=== PATIENT | female | born 1945 | race Caucasian/White ===

== ENCOUNTER 2018-12-18 04:50 | Emergency (ER) | payer MEDICARE, BC ==
[2018-12-18] MEDS ORDERED: Sodium Chloride 0.9% 10 ML Syringe FLUSH PRN (05:08)
[2018-12-18] MEDS ORDERED: Ondansetron 4 MG/2 ML SDV IVPUSH ONE (05:08)
[2018-12-18] MEDS ORDERED: Enalaprilat 1.25 MG/ML SDV IVPUSH ONE (05:10)
[2018-12-18] MEDS ORDERED: Lactated Ringers 1,000 ML IV SCH (05:15)
--- NOTE | 2018-12-18 05:16 | EDM.PDOC ---
<Deven Roman - Last Filed: 12/18/18 07:02> ED HPI GENERAL MEDICAL PROBLEM - General Chief Complaint: Abdominal Pain Stated Complaint: vomiting, abdominal pain Time Seen by Provider: 12/18/18 05:06 Source of Information: Reports: Patient History Limitations: Reports: No Limitations - History of Present Illness INITIAL COMMENTS - FREE TEXT/NARRATIVE: Patient presents with complaints of left upper quadrant pain, nausea, vomiting that started around 0200 this AM. She does also state the pain started yesterday, noticed blood in her stools yesterday. Relays to me that she has been having a hard time with bowel movements as well. No recent history of travel outside the country, no recent ill contact that she is aware. Did see primary care provider Dr. Martinez yesterday. States her gall bladder and appendix have been removed, as has her uterus. Ovaries intact. Denies history of crohn's, diverticulitis, or other IBS/IBD type disease. Denies chest pain, sob. Denies prior heart attack or stroke. Does have history of hemorrhoids, urinary stress incontinence. Onset: Gradual Onset Date: 12/17/18 Duration: Getting Worse, Intermittent Location: Reports: Abdomen Quality: Reports: Ache Severity: Moderate Improves with: Reports: Medication Worsens with: Reports: Movement Associated Symptoms: Reports: Nausea/Vomiting Left Abdomen Pain Score (Numeric/FACES): 8 - Related Data Allergies Allergy/AdvReac Type Severity Reaction Status Date / Time adhesive Allergy Rash Verified 12/18/18 04:51 clonazepam Allergy Hives Verified 12/18/18 04:51 escitalopram Allergy Hives Verified 12/18/18 04:51 codeine AdvReac Nausea and Verified 12/18/18 04:51 Vomiting ibuprofen [From Motrin] AdvReac Nausea and Verified 12/18/18 04:51 Vomiting cigarette smoke Allergy Cannot Uncoded 12/18/18 04:51 Remember glue Allergy Airway Uncoded 12/18/18 04:51 Tightness yellow javket venom Allergy Swelling Uncoded 12/18/18 04:51 Home Meds: Home Meds Albuterol/Ipratropium [Combivent Respimat] 1 puff IH QID PRN 12/09/13 [History] Aspirin [Halfprin] 81 mg PO DAILY 12/09/13 [History] Fluticasone Propionate [Flovent HFA 44 MCG] 2 puff INH BID 12/09/13 [History] Krill Oil 500 mg PO DAILY 12/09/13 [History] Niacin 500 mg PO BEDTIME 12/09/13 [History] Ascorbic Acid 1,000 mg PO DAILY 12/18/18 [History] Bimatoprost [LUMIGAN 0.01% Ophth Soln] 2.5 ml EYEBOTH QPM 12/18/18 [History] Calcium Carbonate/Vitamin D3 [Calcium 600 + Vit D 200] 1 each PO BID 12/18/18 [ History] Lactobacillus Combination No.4 [Probiotic] 1 each PO DAILY 12/18/18 [History] Lisinopril/Hydrochlorothiazide [Zestoretic 10-12.5 mg Tablet] 1 each PO DAILY [History] Turmeric Root Extract [Turmeric] 500 mg PO BEDTIME 12/18/18 [History] diphenhydrAMINE [Benadryl] 50 mg PO ASDIRECTED PRN 12/18/18 [History] traZODone HCl [Trazodone HCl] 1 - 2 tab PO BEDTIME 12/18/18 [History] Past Medical History Cardiovascular History: Reports: Hypertension Respiratory History: Reports: Asthma Musculoskeletal History: Reports: Osteoarthritis Social & Family History - Tobacco Use Smoking Status *Q: Never Smoker ED ROS GENERAL - Review of Systems Review Of Systems: See Below Constitutional: Reports: No Symptoms HEENT: Reports: No Symptoms Respiratory: Reports: No Symptoms Cardiovascular: Reports: No Symptoms Endocrine: Reports: No Symptoms GI/Abdominal: Reports: Abdominal Pain, Bloody Stool, Nausea, Vomiting : Reports: Urinary Retention Musculoskeletal: Reports: No Symptoms Skin: Reports: No Symptoms Neurological: Reports: No Symptoms Psychiatric: Reports: No Symptoms Hematologic/Lymphatic: Reports: No Symptoms Immunologic: Reports: No Symptoms ED EXAM, GI/ABD - Physical Exam Exam: See Below Exam Limited By: No Limitations General Appearance: Alert, WD/WN, Active Emesis Eyes: Bilateral: Normal Appearance, EOMI Ears: Normal TMs Nose: Normal Inspection, Normal Mucosa, No Blood Throat/Mouth: Normal Inspection, Normal Lips, Normal Teeth, Normal Gums, Normal Oropharynx, Normal Voice, No Airway Compromise Head: Atraumatic, Normocephalic Neck: Normal Inspection, Supple, Non-Tender, Full Range of Motion Respiratory/Chest: No Respiratory Distress, Lungs Clear, Normal Breath Sounds, No Accessory Muscle Use, Chest Non-Tender Cardiovascular: Normal Peripheral Pulses, Regular Rate, Rhythm, No Edema, No Gallop, No JVD, No Murmur, No Rub GI/Abdominal Exam: No Abnormal Bruit, Distended, Rigid, Tender Back Exam: Normal Inspection, Full Range of Motion, NT Extremities: Normal Inspection, Normal Range of Motion, Non-Tender, Normal Capillary Refill, No Pedal Edema Neurological: Alert, Oriented, CN II-XII Intact, Normal Cognition, Normal Gait, Normal Reflexes, No Motor/Sensory Deficits Psychiatric: Normal Affect, Normal Mood Skin Exam: Warm, Dry, Intact, Normal Color, No Rash Lymphatic: No Adenopathy Course - Vital Signs Last Recorded V/S: Last Vital Signs Temp 35.9 C 12/18/18 06:04 Pulse 66 12/18/18 06:04 Resp 14 12/18/18 06:04 BP 154/60 H 12/18/18 06:04 Pulse Ox 95 12/18/18 06:04 - Orders/Labs/Meds Orders: Active Orders 24 hr Category Date Time Status Abdomen Pelvis w Cont [CT] Stat Exams 12/18/18 05:15 Taken URINALYSIS W/MICROSCOPIC [UA W/MICROSCOPIC] [URIN] Stat Lab 12/18/18 05:15 Ordered Lactated Ringers [Ringers, Lactated] 1,000 ml Med 12/18/18 05:15 Active IV ASDIRECTED Sodium Chloride 0.9% [Saline Flush] Med 12/18/18 05:08 Active 10 ml FLUSH ASDIRECTED PRN Saline Lock Insert [OM.PC] Routine Oth 12/18/18 05:08 Ordered Medication Orders Lactated Ringer's (Ringers, Lactated) 1,000 mls @ 999 mls/hr IV ASDIRECTED KAITY Last Admin: 12/18/18 05:13 Dose: 999 mls/hr Sodium Chloride (Saline Flush) 10 ml FLUSH ASDIRECTED PRN PRN Reason: Keep Vein Open Labs: Laboratory Tests 12/18/18 12/18/18 12/18/18 Range/Units 05:25 05:25 07:15 WBC 9.7 (4.0-10.0) x10^3/uL RBC 4.90 (4.00-5.50) x10^6/uL Hgb 15.0 (12.0-16.0) g/dL Hct 43.9 (33.0-47.0) % MCV 89.6 (78.0-93.0) fL MCH 30.6 (26.0-32.0) pg MCHC 34.2 (32.0-36.0) g/dL RDW Coeff of Meng 12.7 (10.0-15.0) % Plt Count 193 (130-400) x10^3/uL Neut % (Auto) 69.1 (50.0-80.0) % Lymph % (Auto) 24.9 L (25.0-50.0) % [place] % (Auto) 4.7 (2.0-11.0) % Eos % (Auto) 1.0 (0.0-4.0) % Baso % (Auto) 0.3 (0.2-1.2) % Sodium 141 (136-145) mmol/L Potassium 3.8 (3.5-5.1) mmol/L Chloride 106 (98-107) mmol/L Carbon Dioxide 26 (21-32) mmol/L Anion Gap 12.8 (10-20) mmol/L BUN 18 (7-18) mg/dL Creatinine 1.0 (0.55-1.02) mg/dL Est Cr Clr Drug Dosing TNP Estimated GFR (MDRD) 54 Glucose 205 H (74-106) mg/dL Calcium 10.6 H (8.5-10.1) mg/dL Corrected Calcium 10.68 H (8.5-10.1) mg/dL Magnesium 1.8 (1.8-2.4) mg/dL Total Bilirubin 1.4 H (0.2-1.0) mg/dL AST 16 (15-37) U/L ALT 49 (14-59) U/L Alkaline Phosphatase 84 (46-116) U/L Troponin I 0.022 (<=0.056) ng/mL NT-Pro-B Natriuret Pep 58 (<=125) pg/mL Total Protein 7.6 (6.4-8.2) g/dL Albumin 3.9 (3.4-5.0) g/dL Globulin 3.7 Albumin/Globulin Ratio 1.05 Amylase 46 (25-115) U/L Lipase 140 (73-393) U/L TSH, Ultra Sensitive 0.610 (0.358-3.74) uIU/mL Urine Color Light yellow (YELLOW) Urine Appearance Clear (CLEAR) Urine pH 7.0 (5.0-8.0) Ur Specific Ivel 1.015 Urine Protein Trace H (NEGATIVE) mg/dL Urine Glucose (UA) Negative (NEGATIVE) mg/dL Urine Ketones Negative (NEGATIVE) mg/dL Urine Occult Blood Moderate H (NEGATIVE) Urine Nitrite Negative (NEGATIVE) Urine Bilirubin Negative (NEGATIVE) Urine Urobilinogen 0.2 (0.2) EU/dL Ur Leukocyte Esterase Negative (NEGATIVE) Meds: Medications Generic Name Dose Route Start Last Admin Trade Name Freq PRN Reason Stop Dose Admin Lactated Ringer's 1,000 mls @ 999 mls/hr 12/18/18 05:15 12/18/18 05:13 Ringers, Lactated IV 999 mls/hr ASDIRECTED KAITY Administration Sodium Chloride 10 ml 12/18/18 05:08 Saline Flush FLUSH ASDIRECTED PRN Keep Vein Open Discontinued Medications Generic Name Dose Route Start Last Admin Trade Name Freq PRN Reason Stop Dose Admin Hydrocodone Bitart/Acetaminophen 1 packet 12/18/18 07:12 Take Home: Acetaminophen/Hydrocodone 325-10mg PO 12/18/18 07:13 ONETIME ONE Enalaprilat 1.25 mg 12/18/18 05:10 12/18/18 05:35 Vasotec Iv IVPUSH 12/18/18 05:11 1.25 mg ONETIME ONE Administration Iopamidol 100 ml 12/18/18 06:27 12/18/18 06:37 Isovue-300 (61%) IVPUSH 12/18/18 06:28 100 ml ONETIME ONE Administration Morphine Sulfate 2 mg 12/18/18 05:30 12/18/18 05:39 Morphine IVPUSH 12/18/18 05:31 2 mg ONETIME ONE Administration Ondansetron HCl 4 mg 12/18/18 05:08 12/18/18 05:12 Zofran IVPUSH 12/18/18 05:09 4 mg ONETIME ONE Administration Pantoprazole Sodium 40 mg 12/18/18 05:22 12/18/18 05:36 Protonix Iv IVPUSH 12/18/18 05:23 40 mg ONETIME ONE Administration Tamsulosin HCl 0.4 mg 12/18/18 07:12 Flomax PO 12/18/18 07:13 ONETIME ONE Departure - Departure Disposition: Home, Self-Care 01 Clinical Impression: Hydronephrosis concurrent with and due to calculi of kidney and ureter, Ileus - Discharge Information Instructions: Kidney Stones, [id number] Referrals: PCP,Unobtain [Primary Care Provider] - Forms: ED Department Discharge Additional Instructions: Blossom 10/325mg 1 every 4-6 hours as needed for pain Flomax 0.4mg 1 tab daily Continue to take until your pain has been gone for a week Recheck in clinic in 7-10 days You have a good chance of passing the stone on your own, but if you have pain that is not helped by the Blossom, return to ER. Strain urine. If you collect any stones, bring them in to clinic for analysis. <Zack Hernandez - Last Filed: 12/18/18 07:29> Course - Radiology Interpretation Free Text/Narrative:: 5mm stone at L UPJ with mild hydronephrosis with numerous bilateral non- obstructing renal calculi bilaterally. Mild ileus bowel gas pattern without obstruction. Departure - Departure Time of Disposition: 07:25 - Assessment/Plan Plan: Blossom 10/325mg 1 every 4-6 hours as needed for pain Flomax 0.4mg 1 tab daily Continue to take until your pain has been gone for a week Recheck in clinic in 7-10 days You have a good chance of passing the stone on your own, but if you have pain that is not helped by the Blossom, return to ER. Strain urine. If you collect any stones, bring them in to clinic for analysis. Pt. was urged to return if she is continuing to have severe discomfort, continued vomiting, or other symptoms. She states that she "needs to get home" due to some scheduled home repairs, but will return if needed. All questions were answered.
[2018-12-18] MEDS ORDERED: Pantoprazole 40 MG Vial IVPUSH ONE (05:22)
[2018-12-18] MEDS ORDERED: Morphine 2 MG/ML Syringe IVPUSH ONE (05:30)
[2018-12-18 06:01] LABS: ANION GAP 12.8 mmol/L (10-20); CHLORIDE,CL 106 mmol/L (98-107); SODIUM,NA 141 mmol/L (136-145)
[2018-12-18 06:05] VITALS: BP 154/60; PULSE 66
[2018-12-18] MEDS ORDERED: Iopamidol 612 MG/ML 100 ML Bottle IVPUSH ONE (06:27)
[2018-12-18] MEDS ORDERED: Take Home: Acetaminophen/HYDROcodone 325-10 MG, 5 Tab Pack PO ONE (07:12)
[2018-12-18] MEDS ORDERED: Tamsulosin 0.4 MG Cap.ER PO ONE (07:12)
--- NOTE | 2018-12-18 08:14 | CT ---
[id number] CT/CT Abdomen Pelvis W IV EXAM: CT Abdomen Pelvis W IV CLINICAL DATA: NAUSEA/VOMITING. COMPARISON STUDY: None. FINDINGS: Bibasal subsegmental atelectasis and/or scarring. Along the superior margin of the examination and the right lower lobe there is more focal area of parenchymal opacification abutting the mediastinum. Density of the liver is diffusely decreased. Finding is nonspecific but can be seen with steatosis. Correlate with LFTs. Subcentimeter hypodensities, including a fat-containing subcapsular mass in the high right hepatic lobe near the dome of the diaphragm measuring up to 16 mm in diameter. This was seen on MRI from 2017 and is unchanged. Gallbladder has been resected. Borderline splenomegaly. AP diameter is approximately 13 cm. Pancreas and adrenal glands are unremarkable. Kidneys demonstrate numerous nonobstructing calculi measuring up to 7 mm in diameter. 4-5 mm proximal right ureteral calculus at the UPJ with mild hydronephrosis. Slightly delayed left nephrogram as well. Bowel containing ventral abdominal wall hernia superior to the umbilicus. Few scattered colonic diverticula. No evidence of acute diverticulitis. No small bowel obstruction or inflammation. There is stool within the terminal ileum however, correlate for constipation. This may also account for mildly distended loops of small bowel leading up to the terminal ileum containing air-fluid levels. Small sliding-type hiatus hernia. Advanced L4-5 facet joint arthropathy results in grade 1 anterolisthesis. Diffuse bone demineralization. No prevertebral body hemangioma. Scattered changes of mild to moderate degenerative disease. Moderate bilateral femoroacetabular osteoarthritis. IMPRESSION: Correlate for constipation induced small bowel distention, as there is stool in the terminal ileum with upstream fluid-filled loops of small bowel and moderate colonic stool burden. 5 mm proximal left ureteral calculus at the UPJ with mild upstream hydronephrosis and a delayed nephrogram. Other findings are described above. Giancarlo Gold MD 12/18/18 0813 Thank you for allowing us to participate in the care of your patient.
== END 2018-12-18 07:30 | disposition home or self-care (01) ==
LOC: VM.ED 04:50
DX: N13.2 Hydronephrosis with renal and ureteral calculous obstruction (principal); K56.7 Ileus, unspecified; I10 Essential (primary) hypertension; J45.909 Unspecified asthma, uncomplicated; Z91.048 Other nonmedicinal substance allergy status; Z88.5 Allergy status to narcotic agent; Z88.6 Allergy status to analgesic agent; Z91.038 Other insect allergy status; Z91.09 Other allergy status, other than to drugs and biological substances; Z88.8 Allergy status to other drugs, medicaments and biological substances; Z79.899 Other long term (current) drug therapy; Z79.82 Long term (current) use of aspirin
CPT/HCPCS: 36415; 74177; 80053; 81001; 82150; 83690; 83735; 83880; 84443; 84484; 85025; 96361; 96374; 96375; 99283; 99284; A9270; C9113; J2270; J2405; J7120; Q9967

== ENCOUNTER 2024-01-26 14:45 | Emergency (ER) | payer MEDICARE, BC ==
[2024-01-26 15:15] LABS: APPEARANCE,URINE CLEAR (CLEAR); BILIRUBIN,URINE NEGATIVE (NEGATIVE); COLOR,URINE LIGHT YELLOW (YELLOW); GLUCOSE,URINE NEGATIVE (NEGATIVE); KETONES,URINE NEGATIVE (NEGATIVE); LEUKOCYTE ESTERASE,URINE NEGATIVE (NEGATIVE); NITRITE,URINE NEGATIVE (NEGATIVE); OCCULT BLOOD,URINE NEGATIVE (NEGATIVE); PROTEIN,URINE NEGATIVE (NEGATIVE); UROBILINOGEN,URINE 0.2 EU/dL (0.2)
[2024-01-26] MEDS ORDERED: Sodium Chloride 0.9% 10 ML Syringe FLUSH PRN (15:22)
[2024-01-26 15:27] LABS: BASOPHILS PERCENT AUTO 0.5 % (0.2-1.2); EOSINOPHILS ABSOLUTE AUTO 0.1 x10^3/uL (0.0-0.5); EOSINOPHILS PERCENT AUTO 1.4 % (0.0-4.0); HEMATOCRIT 43.9 % (33.0-47.0); HEMOGLOBIN 15.1 g/dL (12.0-16.0); LYMPHOCYTES ABSOLUTE AUTO 2.4 x10^3/uL (1.0-4.8); LYMPHOCYTES PERCENT AUTO 37.9 % (25.0-50.0); MEAN CORPUSCULAR HEMOGLOBIN 31.2 pg (26.0-32.0); MEAN CORPUSCULAR HGB CONC 34.4 g/dL (32.0-36.0); MEAN CORPUSCULAR VOLUME 90.7 fL (78.0-93.0); MONOCYTES ABSOLUTE AUTO 0.4 x10^3/uL (0.0-0.8); MONOCYTES PERCENT AUTO 6.4 % (2.0-11.0); NEUTROPHILS ABSOLUTE AUTO 3.5 x10^3/uL (1.8-7.7); NEUTROPHILS PERCENT AUTO 53.8 % (50.0-80.0); PLATELET COUNT,PLT 235 x10^3/uL (130-400); RED BLOOD CELL COUNT 4.84 x10^6/uL (4.00-5.50); WHITE BLOOD CELL COUNT,WBC 6.4 x10^3/uL (4.0-10.0)
[2024-01-26 15:42] LABS: ALANINE AMINOTRANSFERASE,ALT 122 U/L (14-59); ALBUMIN 4.2 g/dL (3.4-5.0); ALKALINE PHOSPHATASE 94 U/L (46-116); ASPARTATE AMNIOTRANSFERASE,AST 51 U/L (15-37); BILIRUBIN TOTAL 2.2 mg/dL (0.2-1.0); BLOOD UREA NITROGEN,BUN 11 mg/dL (7-18); CARBON DIOXIDE,CO2 27 mmol/L (21-32); CHLORIDE,CL 104 mmol/L (98-107); CREATININE 0.7 mg/dL (0.55-1.02); GLUCOSE RANDOM 111 mg/dL (70-99); PROTEIN TOTAL,TP 7.7 g/dL (6.4-8.2); SODIUM,NA 141 mmol/L (136-145)
[2024-01-26 15:43] LABS: ESTIMATED GFR 88 mL/min (>=60)
[2024-01-26 17:34] VITALS: BP 135/63; PULSE 63
== END 2024-01-26 16:35 | disposition home or self-care (01) ==
LOC: VM.ED 14:45
DX: F03.A0 Unspecified dementia, mild, without behavioral disturbance, psychotic disturbance, mood disturbance, and anxiety (principal); R44.1 Visual hallucinations; I10 Essential (primary) hypertension; J45.909 Unspecified asthma, uncomplicated; Z91.048 Other nonmedicinal substance allergy status; Z88.8 Allergy status to other drugs, medicaments and biological substances; Z88.5 Allergy status to narcotic agent; Z91.013 Allergy to seafood; Z88.6 Allergy status to analgesic agent; Z79.51 Long term (current) use of inhaled steroids; Z79.899 Other long term (current) drug therapy
CPT/HCPCS: 70450; 80053; 81003; 85025; 99284; 99285